=== PATIENT | male | born 1980 | race Caucasian/White ===

== ENCOUNTER 2018-08-01 23:45 | Emergency (ER) | payer OTHER ==
[2018-08-02] MEDS ORDERED: NS 1,000 ML IV ONE ×2 (00:03→01:44)
[2018-08-02] MEDS ORDERED: ONDANSETRON 4 MG/2 ML VIAL IVP ONE (00:03)
[2018-08-02] MEDS ORDERED: KETOROLAC 30 MG/1 ML SDV IVP ONE (00:03)
--- NOTE | 2018-08-02 00:07 | EDPHY ---
H & P Stated Complaint: RLQ abd pain with nausea and vomiting Time Seen by Provider: 08/01/18 23:56 HPI/ROS: HPI The patient presents with right lower quadrant abdominal pain which has been present for the last several hours and started suddenly. He describes a dull pain without any radiation that has been constant. He has been unable to find a comfortable position. Earlier in the night he was out and drink 2 beers and had dinner. Both of these caused increased pain. When he returned home he vomited. He has not had a fever. He wonders if he could be constipated though had a bowel movement today. He took a dose of Tums and Pepto-Bismol, however these did not improve his symptoms. He last ate at about 10:00 p.m. [employer]. REVIEW OF SYSTEMS 10 systems were reviewed and negative with the exception of the elements mentioned in the history of present illness. PMHx: Healthy, no diabetes, no hypertension, no prior operations Soc Hx: Drinks alcohol occasionally, visiting [place] for work PHYSICAL General Appearance: Alert, no distress Eyes: Pupils equal and round no pallor or injection ENT, Mouth: Mucous membranes moist Respiratory: There are no retractions, lungs are clear to auscultation Cardiovascular: Regular rate and rhythm Gastrointestinal: Abdomen is soft and mildly tender in the right lower quadrant without rebound or guarding, no masses, bowel sounds normal Neurological: A&O, moves all extremities Skin: Warm and dry, no rashes Musculoskeletal: Neck is supple non tender Extremities: symmetrical, full range of motion Psychiatric: Patient is oriented X 3, there is no agitation Source: Patient Exam Limitations: No limitations - Personal History Current Tetanus/Diphtheria Vaccine: Yes Current Tetanus Diphtheria and Acellular Pertussis (TDAP): Yes - Medical/Surgical History Hx Asthma: No Hx Chronic Respiratory Disease: No Hx Diabetes: No Hx Cardiac Disease: No Hx Renal Disease: No Hx Cirrhosis: No Hx Alcoholism: No Hx HIV/AIDS: No Hx Splenectomy or Spleen Trauma: No Other PMH: denies - Social History Smoking Status: Never smoked Constitutional: Initial Vital Signs Temperature (C) 36.6 C 08/01/18 23:46 Heart Rate 82 08/01/18 23:46 Respiratory Rate 16 08/01/18 23:46 Blood Pressure 142/87 H 08/01/18 23:46 O2 Sat (%) 95 08/01/18 23:46 O2 Delivery Mode Room Air Allergies/Adverse Reactions: No Known Allergies Allergy (Unverified 08/01/18 23:48) Home Medications: Medication Instructions Recorded NK [No Known Home Meds] 08/01/18 Medical Decision Making - Diagnostics Imaging Results: CT abdomen pelvis with IV contrast demonstrates right-sided distal ureteral stones which are small with hydronephrosis associated, discussed with Dr. Woodward of Radiology. Imaging: Discussed imaging studies w/ orthopedically impaired teacher Radiologist, I viewed and interpreted images myself Differential Diagnosis: 37-year-old healthy male presents with several hours of right lower quadrant abdominal pain associated with vomiting, anorexia. Differential diagnosis includes appendicitis, mesenteric adenitis, gastroenteritis, renal colic. In the emergency department, patient received IV fluids, medication for pain and vomiting. Labs demonstrated a leukocytosis, UA positive for RBCs. Patient had CT scan is abdomen pelvis which demonstrated ureterolithiasis on the right. Patient felt better after a single dose of Toradol, however had ongoing vomiting despite Zofran. He was given Phenergan here and slept for several hours. When he awoke he felt much better with minimal pain and no nausea or vomiting. He will be discharged home with instructions for ibuprofen and Tylenol. I have given him a pill pack of both Phenergan and Zofran for his nausea. He is in town just for 1 more day and then will return home. He is able to follow up with Urology there he believes. We discussed return precautions. - Data Points Laboratory Results: Laboratory Results 08/02/18 00:12 08/02/18 00:12 08/02/18 08/02/18 08/02/18 01:46 00:12 00:12 WBC 14.27 10^3/uL H 10^3/uL (3.80-9.50) RBC 4.38 10^6/uL L 10^6/uL (4.40-6.38) Hgb 13.7 g/dL g/dL (13.7-17.5) Hct 38.9 % L % (40.0-51.0) MCV 88.8 fL fL (81.5-99.8) MCH 31.3 pg pg (27.9-34.1) MCHC 35.2 g/dL g/dL (32.4-36.7) RDW 11.5 % % (11.5-15.2) Plt Count 188 10^3/uL 10^3/uL (150-400) MPV 10.0 fL fL (8.7-11.7) Neut % (Auto) 87.1 % H % (39.3-74.2) Lymph % (Auto) 6.6 % L % (15.0-45.0) [place] % (Auto) 5.5 % % (4.5-13.0) Eos % (Auto) 0.2 % L % (0.6-7.6) Baso % (Auto) 0.2 % L % (0.3-1.7) Nucleat RBC Rel Count 0.0 % % (0.0-0.2) Absolute Neuts (auto) 12.42 10^3/uL H 10^3/uL (1.70-6.50) Absolute Lymphs (auto) 0.94 10^3/uL L 10^3/uL (1.00-3.00) Absolute Monos (auto) 0.79 10^3/uL 10^3/uL (0.30-0.80) Absolute Eos (auto) 0.03 10^3/uL 10^3/uL (0.03-0.40) Absolute Basos (auto) 0.03 10^3/uL 10^3/uL (0.02-0.10) Absolute Nucleated RBC 0.00 10^3/uL 10^3/uL (0-0.01) Immature Gran % 0.4 % % (0.0-1.1) Immature Gran # 0.06 10^3/uL 10^3/uL (0.00-0.10) Sodium 141 mEq/L mEq/L (135-145) Potassium 3.8 mEq/L mEq/L (3.5-5.2) Chloride 105 mEq/L mEq/L (97-110) Carbon Dioxide 24 mEq/l mEq/l (22-31) Anion Gap 12 mEq/L mEq/L (6-14) BUN 17 mg/dL mg/dL (7-23) Creatinine 1.2 mg/dL mg/dL (0.7-1.3) Estimated GFR > 60 Glucose 135 mg/dL H mg/dL (70-100) Calcium 9.4 mg/dL mg/dL (8.5-10.4) Total Bilirubin 0.4 mg/dL mg/dL (0.1-1.4) Conjugated Bilirubin 0.2 mg/dL mg/dL (0.0-0.5) Unconjugated Bilirubin 0.2 mg/dL mg/dL (0.0-1.1) AST 22 IU/L IU/L (17-59) ALT 50 IU/L IU/L (21-72) Alkaline Phosphatase 80 IU/L IU/L (38-126) Total Protein 6.9 g/dL g/dL (6.3-8.2) Albumin 4.4 g/dL g/dL (3.5-5.0) Urine Color PALE YELLOW Urine Appearance CLEAR Urine pH 6.0 (5.0-7.5) Ur Specific [place] > 1.035 H (1.002-1.030) Urine Protein NEGATIVE (NEGATIVE) Urine Ketones 1+ H (NEGATIVE) Urine Blood 2+ H (NEGATIVE) Urine Nitrate NEGATIVE (NEGATIVE) Urine Bilirubin NEGATIVE (NEGATIVE) Urine Urobilinogen NEGATIVE EU EU (0.2-1.0) Ur Leukocyte Esterase NEGATIVE (NEGATIVE) Urine RBC 50-182 /hpf H /hpf (0-3) Urine WBC 1-3 /hpf /hpf (0-3) Ur Epithelial Cells NONE SEEN /lpf /lpf (NONE-1+) Urine Mucus TRACE /lpf /lpf (NONE-1+) Urine Glucose NEGATIVE (NEGATIVE) Medications Given: Discontinued Medications Sodium Chloride (Ns) 1,000 mls @ 0 mls/hr IV EDNOW ONE; Wide Open PRN Reason: Protocol Stop: 08/02/18 00:04 Last Admin: 08/02/18 00:13 Dose: 1,000 mls Sodium Chloride (Ns) 1,000 mls @ 0 mls/hr IV EDNOW ONE; Wide Open PRN Reason: Protocol Stop: 08/02/18 01:45 Last Admin: 08/02/18 02:12 Dose: 1,000 mls Ketorolac Tromethamine (Toradol) 15 mg IVP EDNOW ONE Stop: 08/02/18 00:04 Last Admin: 08/02/18 00:13 Dose: 15 mg Ondansetron HCl (Zofran) 4 mg IVP EDNOW ONE Stop: 08/02/18 00:04 Last Admin: 08/02/18 00:14 Dose: 4 mg Ondansetron HCl (Zofran Odt 4 Mg Prepack#2) 1 btl TAKEHOME EDNOW ONE Stop: 08/02/18 02:04 Last Admin: 08/02/18 02:13 Dose: 1 btl Promethazine HCl (Phenergan) 12.5 mg IVP ONCE ONE Stop: 08/02/18 02:34 Last Admin: 08/02/18 02:36 Dose: 12.5 mg Departure - Departure Disposition: Home, Routine, Self-Care Clinical Impression: Ureterolithiasis, Renal colic on right side Condition: Good Instructions: Renal Colic (ED) Additional Instructions: 1. Take ibuprofen 400 mg every 6 hr. If the pain is severe, you can take Tylenol 1000 mg every 6 hr with the ibuprofen. 2. Zofran as needed for nausea 3. Strain urine as directed 4. Return to the Emergency Department for intractable pain, fever or vomiting. 5. Followup with a urologist at home if your symptoms continue for more than a few days. Referrals: Bon Galvan MD [Medical Doctor] - As per Instructions
[2018-08-02 00:20] LABS: PLATELET COUNT 188 10^3/uL (150-400)
[2018-08-02] MEDS ORDERED: IOPAMIDOL (ISOVUE-300) 100 ML BTL ONE (00:37)
[2018-08-02] MEDS ORDERED: ONDANSETRON 4MG PREPACK#2 BTL TAKEHOME ONE (02:03)
[2018-08-02] MEDS ORDERED: PROMETHAZINE HCL 25 MG/ML INJ IVP ONE (02:33)
[2018-08-02] MEDS ORDERED: PROMETHAZINE HCL 25 MG/ML INJ ONE (02:35)
[2018-08-02] MEDS ORDERED: PROMETHAZINE 25 MG PREPACK #4 BTL TAKEHOME ONE (06:19)
[2018-08-02 06:31] VITALS: BP 134/71
== END 2018-08-02 06:31 | disposition home or self-care (01) ==
DX: N20.1 Calculus of ureter (principal); N23 Unspecified renal colic; R63.0 Anorexia; E86.9 Volume depletion, unspecified
CPT/HCPCS: J1885; J2405; J2550; Q9967